=== PATIENT | male | born 1995 | race Caucasian/White ===

== ENCOUNTER 2016-08-10 20:15 | Emergency (ER) | payer OTHER ==
[~2016-08-10] VITALS: Ht 182.9 cm; Wt 84.2 kg
[2016-08-10 20:17] VITALS: BP 103/69; PULSE 104; RESP 15; O2SAT 98
[2016-08-10 20:51] LABS: BASOPHILS % (AUTO) 0 % (0-3); EOSINOPHILS % (AUTO) 1 % (0-5); MONOCYTES % (AUTO) 7 % (4-12); Mean Corpuscular Hemoglobin 30.1 pg (27.0-35.0); Mean Corpuscular Volume 86 fL (81-100); NEUTROPHILS % (AUTO) 85 % (40-74); Platelet Count 338 bil/L (150-400)
--- NOTE | 2016-08-10 22:28 | ED.REPORT ---
HPI-Abd Pain M Under 40 Date of Service Aug 10, 2016 ED Provider: Capo Hernandez MD A 20 year old male with a history of recent URI and Erick-bar virus is referred to the ED from Urgent Care due to vomiting and diarrhea. These symptoms began yesterday and have persisted since. The pt has experienced 15 episodes of watery diarrhea today, though he denies hematochezia or hematemesis. This is accompanied by chills and abdominal pain. The pain is constant with intermittent spikes of sharp, diffuse pain. The character of this pain does not chance with bowel movements. The pt denies fever. He began taking Cefdinir eight days ago to treat URI symptoms. Nursing Notes Stated Complaint: DIARRHEA-SENT BY URGENT CARE Chief Complaint: Male Abdominal Pain Nursing Notes Reviewed: Yes Allergies: Coded Allergies: Penicillins (Verified Allergy, Severe, Hives, 08/10/16) Scheduled PRN Ibuprofen (Ibuprofen) 800 Mg Tablet 800 MG PO TID PRN PRN For Pain Ondansetron ODT (Zofran ODT) 4 Mg Tablet 4 MG PO Q4H PRN PRN For Nausea General Time Seen by MD: 21:40 Chief Complaint Other (Diarrhea) Hx Obtained From: Patient Arrived By: Walk-in Sudden in Onset?: No Onset Occurred: 1 day ago Symptom Duration: Since onset Recent Healthcare: No recent doctor visit, No recent hospitalization Similar Sx Previous: No Past Medical History Past Medical History Erick-bar virus URI Past Surgical History none reported Smoking History Unknown if Ever Smoker Social History Other Social History: Good social support Ambulatory Status Independent Review of Systems Constitutional: Reports: Chills, Denies: Fever Respiratory: Denies: Shortness of breath Cardiovascular: Denies: Chest pain GI: Reports: Abdominal pain, Diarrhea, Nausea, Vomiting, Denies: Hematemesis, Hematochezia Musculoskeletal: Denies: Back pain Complete sys rev & neg: except as marked. Skin: Denies Rash Physical Exam Initial Vital Signs Vital Signs (First) Date Time Temp Pulse Resp B/P Pulse Ox O2 Delivery O2 Flow Rate FiO2 08/10/16 20:17 36.9 104 15 103/69 98 Room Air Initial VS: Reviewed General/Constitutional: Awake, Alert Respiratory / Chest: Atraumatic, Breath sounds NL, Breath sounds = bilat, No respiratory distress Cardiovascular: Heart rate NL, Regular rhythm, Heart sounds NL Abdomen: Atraumatic, Soft diffusely tender, specifically LLQ and suprapubic Back: Atraumatic, Full range of motion Head / Eyes: Atraumatic, Normocephalic, PERRL, EOMI ENT: Atraumatic, Airway patent, Mucous membranes moist Rectum / Perineum: Atraumatic guaiac neg loose yellow, watery stool perianal erythema Neurologic: Oriented X3, Speech NL, No motor deficits, No sensory deficits Neck: Atraumatic, Supple, Full range of motion Upper Extremity / MS: Atraumatic, Full range of motion Lower Extremity / Pelvis / MS: Atraumatic, Full range of motion Skin: Atraumatic, Color NL, No rash, Warm, Dry Psychiatric: Affect NL, Mood NL Interpretation & Diagnostics Lab Results Interpretation Result Diagram: 08/10/16203208/10/162032 Test 08/10/16 20:33 White Blood Count 31.5th/mm3 (3.8-10.1) Red Blood Count 5.41mil/mm3 (4.40-5.80) Hemoglobin 16.3g/dL (13.8-17.2) Hematocrit 46.5% (41.0-50.0) Mean Corpuscular Volume 86fL (81-100) Mean Corpuscular Hemoglobin 30.1pg (27.0-35.0) Mean Corpuscular Hemoglobin Concent 35.1% (32.0-37.0) Red Cell Distribution Width 11.8% (12.3-15.4) Platelet Count 338bil/L (150-400) Neutrophils (%) (Auto) 85% (40-74) Lymphocytes (%) (Auto) 7% (14-46) Monocytes (%) (Auto) 7% (4-12) Eosinophils (%) (Auto) 1% (0-5) Basophils (%) (Auto) 0% (0-3) Sodium Level 136mEq/L (134-144) Potassium Level 4.0mEq/L (3.5-5.2) Chloride Level 97mEq/L (97-108) Carbon Dioxide Level 24mmol/L (18-29) Blood Urea Nitrogen 15mg/dL (6-20) Creatinine 1.03mg/dL (0.76-1.27) Estimat Glomerular Filtration Rate 98mL/min (>59) Glucose Level 106mg/dL (60-99) Calcium Level 9.0mg/dL (8.5-10.1) Magnesium Level 2.0mg/dL (1.6-2.6) Total Bilirubin 0.6mg/dL (0.0-1.2) Aspartate Amino Transf (AST/SGOT) 28U/L (0-50) Alanine Aminotransferase (ALT/SGPT) 52U/L (0-44) Alkaline Phosphatase 58U/L (25-150) Total Protein 7.2g/dL (6.4-8.4) Albumin 4.2g/dL (3.4-5.0) Lipase 23U/L (13-60) Hold Pa Top Tube Received (Received) CT Abd / Pelvis Interpretation CONCLUSION: Diffuse circumferential wall thickening of the cecum suggesting some type of inflammatory or infectious colitis. There is some adjacent enlarged lymph nodes. The appendix appears normal. Interpretation / Wet Read by: Interpret - Radiologist Re-Eval/Medical Decision Med Decision/Clinical Course 20-year-old male presenting complaining of 15 episodes of watery diarrhea today. Patient is on antibiotics for URI started one week ago. Cefdinir. Also with vomiting since last night. Nonbloody nonbilious. White blood cell count in urgent care was 30,000. Patient was sent over for imaging. CT abdomen and pelvis with cecal thickening. Stool studies were sent but they will not perform the test until the morning. Patient was given 1 L normal saline and Zofran and morphine and felt much better. He requested to go home. Possible C. difficile though will await stool cultures start antibiotics. Also possibly viral. I advised the patient that we will call him tomorrow should his studies show any indication for antibiotics. He is also able to call if he does not hear from us. Discharged with Zofran and ibuprofen. Return precautions given. Source of Hx: Family Re-Evaluation/Progress : Time of Eval: 00:12 Patient Status: Condition improved Re-Evaluation/Progress Note: Pt rechecked, who is feeling much better. He is informed of his radiology results and diagnosis. The plan for discharge is discussed. The pt understands and agrees with the plan. All questions are addressed at this time. Counseled Regarding: Diagnosis, Lab results, Need for follow-up, When/why to return to ED Patient Discharge & Departure Primary Impression: Abdominal pain Abdominal location: unspecified location Qualified Code: R10.9 - Unspecified abdominal pain Additional Impression: Diarrhea Disposition: Home Discharge Condition All VS Reviewed: Yes Condition: Stable Patient Instructions: Acute Abdominal Pain (ED), Acute Diarrhea (ED), Clear Liquid Diet (ED) Additional Instructions: Thank you for entrusting us with your care today. Maintain a clear liquid diet and advance as tolerated. Stay hydrated by drinking small amounts. Follow up with your primary care physician for further evaluation. Return to the emergency department if you develop any new or worsening symptoms. Referrals: [facility] Scribe Attestation Portions of this note were transcribed by Erica Olivier. I, Dr. Hernandez personally performed the history, physical exam and medical decision-making; I reviewed and confirmed the accuracy of the information in the transcribed note. Signed by: Ina Ron, 08/11/2016 and 00:57. copies to: [facility] Capo Hernandez MD Aug 10, 2016 22:28 ERICA OLIVIER Aug 10, 2016 22:54
[2016-08-10] MEDS ORDERED: 0.9% Sodium Chloride 1,000 ML IV ONE (22:31)
[2016-08-10] MEDS ORDERED: Ondansetron 2 mg/mL 2 mL Inj IVPUSH PRN (22:35)
[2016-08-11] MEDS ORDERED: IBUP800T28 PO (00:12)
[2016-08-11] MEDS ORDERED: ONDA4TAB9 PO (00:12)
[2016-08-11 00:20] VITALS: BP 91/53; PULSE 61; RESP 16; O2SAT 98
--- NOTE | 2016-08-11 10:17 | DRSVH ---
PROCEDURE: CT ABDOMEN AND PELVIS WITH CONTRAST ([id number]) INDICATIONS: abd pain TECHNIQUE: After the administration of intravenous contrast, 5 mm thick sections acquired from the diaphragm to the symphysis. 5 mm coronal and sagittal reformats were acquired. For radiation dose reduction, the following was used: automated exposure control, adjustment of mA and/or kV according to patient siz e. COMPARISON: None. FINDINGS: Image quality: Excellent. ABDOMEN: Lung bases: Lung bases are clear. Heart size is normal. Solid organs: Liver is mildly enlarged steatosis. The spleen is normal in size and enhancement. Gal lbladder is unremarkable. Biliary system is non dilated. Pancreas enhances normally. No adrenal no dules. Kidneys demonstrate normal size and enhancement, without hydronephrosis. Peritoneum and bowel: Bowel loops are nonobstructed. There is a circumferential apparent thickening within the cecum and very proximal asscending colon. There are several adjacent prominent lymph nodes , the largest measuring approximately 12 mm. There is very minimal appreciable surrounding inflammato ry change. The appendix is unremarkable. Nodes and vessels: No retroperitoneal or mesenteric adenopathy by size criteria. Aorta and inferior vena cava are normal in size. Miscellaneous: No ventral hernias. PELVIS: Genitourinary: Bladder wall thickness is normal. Miscellaneous: No inguinal hernias or adenopathy. Bones: No suspicious bony lesions. No vertebral body compression fractures. IMPRESSION: 1. Thickening within the cecum and ascending colon, with several prominent adjacent lymph nodes. It i s noted that there is very minimal surrounding pericolonic inflammation. Findings could be related to an early colitis, given patient's age. However, given the lack of typically visualized pericolonic i nflammation with colitis, recommend correlation patients symptoms and interval imaging followup to do cument resolution after appropriate therapy, excluding presence of an underlying mass lesion. Dictated by: Fidelina Chavez M.D. on 08/11/2016 at 10:12 Approved by: Fidelina Chavez M.D. on 08/11/2016 at 10:15
== END 2016-08-11 00:12 | disposition home or self-care (01) ==
LOC: SED 20:15
DX: R10.32 Left lower quadrant pain (principal); R19.7 Diarrhea, unspecified; R11.10 Vomiting, unspecified; R68.83 Chills (without fever); Z86.19 Personal history of other infectious and parasitic diseases; Z88.0 Allergy status to penicillin
CPT/HCPCS: 36415; 74177; 80053; 83690; 83735; 85025; 87507; 96374; 99285; J2405; J7030; Q9967